=== PATIENT | female | born 1990 | race Caucasian/White ===

== ENCOUNTER 2016-06-18 17:35 | Emergency (ER) | payer MEDICAID ==
[~2016-06-18] VITALS: Ht 162.6 cm; Wt 95.3 kg
[2016-06-18 17:35] VITALS: BP 108/67
[2016-06-18] MEDS ORDERED: FLUO20CA36 PO (17:54)
[2016-06-18] MEDS ORDERED: ALPR1TAB2 PO (17:54)
[2016-06-18] MEDS ORDERED: FLUORESCEIN SODIUM OPHTH 1 EA STRIP ONE (20:54)
[2016-06-18] MEDS ORDERED: TETRACAINE HCL/PF 0.5% UD 2 ML BOTTLE ONE (20:54)
== END 2016-06-18 21:44 | disposition home or self-care (01) ==
LOC: ER 17:38
DX: H16.312 Corneal abscess, left eye (principal)
CPT/HCPCS: 99283; A4606; Z7610